=== PATIENT | female | born 1985 | race Caucasian/White ===

== ENCOUNTER 2023-01-12 00:29 | Day surgery (SDC) | payer BC, SELFPAY ==
[2023-01-10 13:14] VITALS: BMI 29.9
--- NOTE | 2023-01-10 13:20 | PC.NURSE ---
Report to the Outpatient Waiting Room, entrance under the green pavilion located off [facility], at time 7:30 on date 01/12/23. Planned Procedure Time: 9:30. Time changes happen often and if your time is changed the preop area will call you the afternoon before. - You and your visitor will be asked to self-screen and do not enter if you have any COVID symptoms. - A mask is optional within the hospital at this time. Patients may have clear liquids (water, carbonated beverages, clear teas, apple juice) until 3 hours prior to surgery (6:30) with a maximum of 20 ounces. - No food from midnight until time of surgery Take the following medications with a SIP of water the morning of surgery: NONE DO NOT STOP ANY OF YOUR OTHER PRESCRIPTION MEDICATIONS PRIOR TO SURGERY ?EXCEPT THE FOLLOWING Medications to discontinue per physician: VITAMINS/SUPPLEMENTS Date to take last dose: NO MORE UNTIL AFTER SURGERY Please no make-up, nail thai, hairspray, perfume, deodorant, or body powder the day of surgery. No jewelry (including any body piercings) or valuables the day of surgery, leave them at home. Please take a shower or bath the night before, or the morning of, surgery with an antibacterial soap. Wear comfortable, loose fitting clothing. - Jewelry must be removed prior to entering the operating room. Rings and piercings that are not removed may be cut off. - The hospital will not accept responsibility for valuables. - Please leave all valuables, including medications, at home the day of surgery. If you are going home after surgery, a licensed spike driver must drive you home. - NO public transportation without another adult if you receive anesthesia. - We recommend that an adult stay with you for 24 hours following discharge. - We also recommend that you do not drive, make important decision, drink alcoholic beverages, or take any drugs that were not prescribed by your health care provider for at least 24 hours after your discharge time. Follow any additional instructions given to you from your surgeon. If you or anyone in your household have experienced Covid symptoms in the past week, please notify your surgeon or the nurse liaison at the phone number below for possible testing. Telephone instructions given to PT - JOVAN GARCÍA and asked if any additional questions and then verbalized understanding. Patient advised to call surgeon office or pre surgery nurse liaison [phone] if any additional questions.
[2023-01-12] VITALS (10 sets, daily range): BP systolic 101–135; BP diastolic 65–92; PULSE 54–93; RESP 10–18; TEMP 36.1–37.2; O2SAT 92–100
[2023-01-12] MEDS: LACTATED RINGERS 1,000 ML 30 ML IV CONT ×2 (08:00→10:56)
--- NOTE | 2023-01-12 08:08 | ECG_ITS ---
Measurements Intervals [place] Rate: 65 P: 50 [place]: 152 QRS: 49 QRSD: 91 T: 49 QT: 395 QTc: 413 Interpretive Statements SINUS RHYTHM NO PREVIOUS ECG AVAILABLE FOR COMPARISON Electronically Signed On 01-12-2023 11:50:14 CDT by Abhinav Torre M.D.
[2023-01-12] MEDS: ACETAMINOPHEN 500 MG TABLET 1000 MG PO (08:18)
[2023-01-12] MEDS: KETOROLAC 15 MG/ML VIAL (*BKC) IV PUSH (08:19)
--- NOTE | 2023-01-12 08:39 | WPDANESEPPF ---
Anes - Initial Pre Proc Eval Procedure: Operation Date: 01/12/23 09:30 Proposed Procedures p Total Laparoscopic Hysterectomy with Bilateral Salpingectomy - Nuzhat Ha MD Date/Time: 01/12/23 08:39 Surgeon: Nuzhat Ha MD Pre Op Diagnosis: menorrhaghia Patient Data Age: 37 Gender: F Height: 1.65 m Weight: 81.65 kg Allergies Allergy/AdvReac Type Severity Reaction Status Date / Time No Known Allergies Allergy Verified 01/10/23 13:13 Home Medications Medication Instructions Recorded Confirmed Type coQ10 (ubiquinol) 200 mg capsule 200 mg PO DAILY 01/10/23 01/10/23 History lisdexamfetamine 30 mg capsule 30 mg PO DAILY 01/10/23 01/10/23 History (Vyvanse) omega 9-ieu-tto-fish oil 1,000 mg 1 cap PO DAILY 01/10/23 01/10/23 History (120 mg-180 mg) capsule (Fish Oil) Laboratory Tests 01/12/23 08:21 Sodium Pending Potassium Pending Chloride Pending Carbon Dioxide Pending Anion Gap Pending BUN Pending Creatinine Pending Estim Creat Clear Calc Pending Estimated GFR Pending Glucose Pending Calcium Pending Total Bilirubin Pending AST Pending ALT Pending Alkaline Phosphatase Pending Total Protein Pending Albumin Pending Patient hx anesthesia problems: none Family hx anesthesia problems: none Results Review: All pre-operative results and documents have been reviewed as part of the pre-operative evaluation. [facility] Social History Social History Smoking packs per day: 0.5 Smoking cigarettes per day: 10.0 Years smoked: 10 Smoking pack-years: 5.00 Smoking status: Former smoker Tobacco type: cigarettes Smoking end date: 05/23/09 Alcohol intake: current Alcohol use details: 2/MONTH Substance use: never Substance use type: does not use Living arrangements: with family Spiritual care concerns: No Anes - Eval Final PreProcedure Day of Procedure 01/12/23 08:39 Patient weight: overweight Heart: regular rate and rhythm Lungs: clear to auscultation Airway: Mallampati scale class II Neurological: alert and oriented Last oral intake: >/= 8 hours ASA classification: II Emergent: no Anesthetic plan: proceed Anesthesia type and monitoring: general ETT and standard monitoring Results Review: All pre-operative results and documents have been reviewed as part of the pre-operative evaluation. Informed Consent: The patient's anesthetic plan and its attendant risks and benefits were discussed with the patient/family/POA. Questions were solicited and answers provided to the satisfaction of the patient/family/POA.
[2023-01-12 09:14] LABS: Anion Gap 2 mmol/L (8-16); Blood Urea Nitrogen 13 mg/dL (7-17); Carbon Dioxide 28 mmol/L (22-30); Chloride 104 mmol/L (98-107); Estimated CRCL calculation 86 ml/min; Estimated Glomerular Filt Rate > 60; Glucose 100 mg/dL (65-110); Potassium 4.3 mmol/L (3.4-5.0); Sodium 134 mmol/L (137-145)
[2023-01-12 09:15] LABS: Alanine Aminotransferase 26 U/L (6-35); Albumin Level 4.4 g/dL (3.5-5.1); Alkaline Phosphatase 51 U/L (38-126); Aspartate Amino Transferase 25 U/L (14-36); Bilirubin,Total 0.8 mg/dL (0.2-1.3); Calcium 9.4 mg/dL (8.4-10.2)
--- NOTE | 2023-01-12 11:08 | W.PM.PROC2 ---
Procedure Note - Detailed Date of Procedure 01/12/23 Pre-op Diagnosis menorrhaghia Post-op Diagnosis Same Procedure Performed Total laparoscopic hysterectomy. Surgeon Nuzhat Ha MD Anesthesia General Description of Procedure This patient was taken to the operating room. She was prepped and draped in the dorsal lithotomy position after induction of general anesthesia. The uterine manipulator and Torsten cup were placed. This was done with a speculum and tenaculum. The speculum was placed. The cervix was grasped with a tenaculum. The stay sutures were placed at 3 and 9:00 a.m.. The stay sutures of 0 Vicryl were brought through the appropriately sized Torsten cup. The tip of the BROOK manipulator was placed in the intrauterine cavity. The cup was slid into place around the cervix and into the fornices. It was locked into place. The sutures were then wrapped around the handle and tied under tension. A 5 mm skin incision was made in the left upper quadrant the abdomen. A 5 mm trocar was inserted into the intrauterine cavity under direct visualization of the scope. Pneumoperitoneum was achieved. A left lower quadrant 11 mm incision was made with scalpel. An 11 mm trocar was inserted into the anterior abdominal cavity under direct visualization the scope. A 5 mm infraumbilical incision was made with a scalpel and a 5 mm trocar was inserted the intra-abdominal cavity under direct visualization of the scope. Bilateral ureteral lysis was performed. This was done from the pelvic brim down to the uterine artery. This was done with careful dissection using sharp and blunt dissection. The fallopian tubes were removed bilaterally. The mesosalpinx around the fallopian tubes were cauterized transected with LigaSure cautery. This was done in a bilateral fashion from the ovary to the uterine cornua. The fallopian tube was transected at the uterine cornu and amputated. The tube was taken out the left lower quadrant trocar site. In a stepwise fashion along the lateral aspects of the uterus the round ligament and broad ligaments were cauterized transected down to the level of the uterine arteries. A bladder flap was created in the bladder was moved distally to the end of the cervix and over the Torsten cup. The bilateral uterine arteries were cauterized and transected. Colpotomy was then performed. In a circumferential fashion the vagina was transected using unipolar cautery. The incision was made down on the Torsten cup. The uterus and cervix were taken out through the vagina. A pneumo occluder was placed in the vagina. The vaginal cuff was closed with a 0 V lock suture in a running fashion. The pelvis was irrigated with copious amounts antibiotic irrigation. The ureters were again examined and found to be intact and flowing freely under the uterine arteries into the bladder. The bladder was intact. It was examined directly. The vagina was irrigated with Betadine solution after removal of the Pneumo occluder. The patient was taken to recovery room. She was stable condition. Sponge lap and needle counts were correct x2. Estimated Blood Loss -50.0 Urine Output -550.0 Drains Yes Packing No Pathology Yes Complications No immediate complications Condition Stable Disposition Floor
[2023-01-12] MEDS: fentaNYL CITRATE INJ (*CRX) 100 MCG/2 ML VIAL 25 MCG IV PUSH ×5 (11:30→11:50)
[2023-01-12] MEDS: DEXTROSE 5%/0.45% SOD CHL 1,000 ML 125 ML IV CONT (12:45)
[2023-01-12] MEDS: KETOROLAC 30 MG/ML VIAL (*BKC) IV PUSH ×2 (13:15→19:40)
[2023-01-12] MEDS: IBUPROFEN 600 MG TABLET PO (17:43)
[2023-01-13] MEDS: ACETAMINOPHEN 325 MG TABLET 650 MG (00:01)
[2023-01-13 03:56] VITALS: BP 121/84; PULSE 71; RESP 16; TEMP 37; O2SAT 98
[2023-01-13] MEDS: ACETAMINOPHEN 325 MG TABLET 650 MG PO (08:01)
[2023-01-13 08:10] VITALS: BP 117/75; PULSE 74; RESP 16; TEMP 37.4; O2SAT 99
--- NOTE | 2023-01-13 08:33 | PM.GYNPNOP ---
IMMIGRATION CONSULTANT - A/P Postoperative Procedures: Procedures Operation Date: 01/12/23 09:30 Actual Procedure Side Surgeon p Total Laparoscopic Hysterectomy with Bilateral Salpingectomy Nuzhat Ha MD Postoperative day: 1 Postoperative status: doing well and other (Tollerating Regular Diet) Postoperative plan: routine post-op care and discharge Time Spent With Patient Time: Total time spent is greater than 50% in coordination of care (as documented) at patient's floor/unit and/or counseling patient: Time with patient: 15 - 25 minutes IMMIGRATION CONSULTANT- PN:Subj Post-Op Subjective Date/time seen: 01/13/23 08:33 Subjective: patient reports feeling better, pain is well controlled and patient is tolerating oral intake Exam Const: General: cooperative, healthy appearing, comfortable and no acute distress Resp: Auscultation: no crackles, no rales, no rhonchi and no wheezes Cardio: Rhythm: regular rhythm Heart sounds: no click and no murmurs GI: Inspection: non-distended Auscultation: normal bowel sounds Other: Incisions - CDI Extrem: General: normal to inspection, no pedal edema and no calf tenderness IMMIGRATION CONSULTANT - PN: Obj Data Vital Signs Vital Signs: Vital Signs - 24 hr 01/12/23 10:56 01/12/23 11:10 01/12/23 11:25 Temperature 97.0 F L Pulse Rate 70 54 L 63 Respiratory Rate 17 10 L 12 Blood Pressure 135/92 H 133/87 118/83 Pulse Oximetry 100 100 98 Oxygen Delivery Simple Face Mask Simple Face Mask Room Air Oxygen Flow Rate 8 8 01/12/23 11:40 01/12/23 11:55 01/12/23 12:15 Temperature 97.8 F Pulse Rate 59 L 59 L 62 Respiratory Rate 10 L 12 16 Blood Pressure 111/77 126/73 106/65 Pulse Oximetry 95 92 99 Oxygen Delivery Room Air Room Air Oxygen Flow Rate 01/12/23 16:02 01/12/23 16:02 01/12/23 19:46 Temperature 98.0 F 98.5 F Pulse Rate 79 93 Respiratory Rate 17 16 Blood Pressure 114/74 112/76 Pulse Oximetry 97 97 Oxygen Delivery Room Air Oxygen Flow Rate 01/12/23 23:53 01/13/23 03:56 01/13/23 08:10 Temperature 98.9 F 98.6 F Pulse Rate 81 71 Respiratory Rate 18 16 Blood Pressure 101/65 121/84 Pulse Oximetry 97 98 Oxygen Delivery Room Air Oxygen Flow Rate Intake/Output Intake/Output: Intake & Output 01/10/23 01/11/23 01/12/23 01/13/23 23:59 23:59 23:59 23:59 Intake Total 1450 Output Total 1700 500 Balance -250 -500 Meds/Results Medications: Active Medications Generic Name Dose Route Start Last Admin Trade Name Freq PRN Reason Stop Dose Admin Acetaminophen 650 mg 01/13/23 01:56 01/13/23 08:01 Acetaminophen 325 Mg Tablet PO 650 mg Q6H PRN Administration Headache Hydrocodone Bitart/Acetaminophen 1 tab 01/12/23 12:01 Hydrocodone/Acetaminophen (*Crx) 5-325 Mg Tablet PO Q3H PRN Pain Rated 5 or Less Hydrocodone Bitart/Acetaminophen 1 tab 01/12/23 12:01 Hydrocodone/Acetaminophen (*Crx) 10-325 Mg Tablet PO Q3H PRN Pain Rated 6 or Greater Dextrose/Sodium Chloride 1,000 mls @ 125 mls/hr 01/12/23 12:01 01/13/23 08:02 Dextrose 5% Sodium Chloride 0.45% IV CONT Not Given .Q8H JAVED Ibuprofen 600 mg 01/12/23 12:01 01/12/23 17:43 Ibuprofen 600 Mg Tablet PO 600 mg Q6H PRN Administration Cramping Ketorolac Tromethamine 30 mg 01/12/23 12:01 01/12/23 19:40 Ketorolac 30 Mg/Ml Vial (*Bkc) IV PUSH 01/17/23 12:00 30 mg Q6H PRN Administration Pain Rated 4-6 Miscellaneous Information 0 each 01/12/23 00:01 Vyvanse Is Non-Formulary. Use Pt Own Supply? XX 02/11/23 00:00 CLARIFY JAVED Naloxone HCl 0.1 mg 01/12/23 12:01 Naloxone Hcl 0.4 Mg/Ml Vial IV PUSH Q2M PRN Respiratory rate less than 10 Non-Formulary Medication 30 mg 01/13/23 09:00 Lisdexamfetamine [Vyvanse] PO 02/12/23 08:59 DAILY JAVED Ondansetron HCl 4 mg 01/12/23 12:01 Ondansetron Inj 4 Mg/2 Ml Vial IV PUSH Q6H PRN Nausea And Vomiting Labs 01/12/23 08:58 L
== END 2023-01-13 10:26 | disposition home or self-care (01) ==
LOC: ANHSURGERY 09:58 → ANHOB2 12:18
PROVIDERS: PCP Family Medicine; Visit Provider Obstetrics & Gynecology
PROC: 0UT9FZZ Resection of Uterus, Via Natural or Artificial Opening With Percutaneous Endoscopic Assistance (ICD-10-PCS; CPT 58571; principal; 2023-01-12 09:30)
DX: N92.0 Excessive and frequent menstruation with regular cycle (principal); N72 Inflammatory disease of cervix uteri; N83.8 Other noninflammatory disorders of ovary, fallopian tube and broad ligament; Z87.891 Personal history of nicotine dependence
CPT/HCPCS: 58571; 36415; 80053; 86850; 86900; 86901; 88307; 93005; 99199; A9270; J0690; J1100; J1170; J1885; J2250; J2371; J2405; J2704; J3010; J7120